=== PATIENT | female | born 1970 | race Caucasian/White ===

== ENCOUNTER 2017-02-20 17:43 | Emergency (ER) | payer OTHER ==
[2017-02-20 18:15] VITALS: BP 178/105; TEMP 98.7; O2SAT 98
--- NOTE | 2017-02-20 18:56 | ED.PDOC ---
History of Present Illness - General Chief Complaint: ENT Problem Stated Complaint: worm in ear Time Seen by Provider: 02/20/17 18:56 Source: patient - History of Present Illness Initial Comments: Arlen Mock 46 y/o female brought by to ER after patient claimed had worms in her right ear;she was already seen by her Md in [place] and was given prescription for worm medication but unable to pick it up at the pharmacy and came here if we could give medication for her symptoms tonight. She also claimed that parasite coming out of her skin and mouth as was claimed by Timing/Duration: last week Severity: moderate EENT Location: ear (R) Prearrival Treatment: no prearrival treatment Presenting Symptoms: worm in ears Improving Factors: nothing Worsening Factors: cold therapy Associated Symptoms: denies symptoms Allergies/Adverse Reactions: Allergies NO KNOWN ALLERGY Allergy (Verified 02/20/17 18:15) Home Medications: Ambulatory Orders NK [NK] 02/20/17 Review of Systems - Review of Systems Constitutional: States: no symptoms reported EENTM: States: no symptoms reported Respiratory: States: no symptoms reported Cardiology: States: no symptoms reported Gastrointestinal/Abdominal: States: no symptoms reported Genitourinary: States: no symptoms reported Musculoskeletal: States: no symptoms reported Skin: States: see HPI Past Medical History (General) - Patient Medical History Hx Seizures: No Hx Stroke: No Hx Dementia: No Hx Asthma: No Hx of COPD: No Hx Cardiac Disorders: No Hx Congestive Heart Failure: No Hx Pacemaker: No Hx Hypertension: No Hx Thyroid Disease: No Hx Diabetes: No Hx Gastroesophageal Reflux: No Hx Renal Disease: No Hx Cancer: No Hx of HIV: No Hx Hepatitis C: No Hx MRSA: No Surgical History: no surgical history - Vaccination History Hx Tetanus, Diphtheria Vaccination: No - not since high school Hx Influenza Vaccination: Yes Hx Pneumococcal Vaccination: No - Social History Hx Tobacco Use: Yes Hx Chewing Tobacco Use: No Hx Alcohol Use: No Hx Physical Abuse: No Hx Emotional Abuse: No Hx Suspected Abuse: No - Activities of Daily Living Grooming Ability: Independent Eating (Feeding) Ability: Independent Toileting Ability: Independent - Female History Patient is a Female of Child Bearing Age (10 -59 yrs old): Yes Patient : No Family Medical History - Family History Mother Family History: Unknown Physical Exam - Physical Exam General Appearance: Agitated, No apparent distress Eye Exam: bilateral normal Ear Exam: bilateral ear: auricle normal, canal normal, TM normal Nasal Exam: normal inspection Throat Exam: normal mouth inspection, pharynx normal Neck: non-tender, full range of motion, supple, normal inspection, trachea midline Cardiovascular/Respiratory: regular rate, rhythm, no M/R/G, no respiratory distress Abdominal Exam: non-tender, no organomegaly Skin Exam: normal color, warm/dry Progress - Progress Progress: 02/20/17 20:07 Last Vital Signs Temp 98.7 F 02/20/17 18:03 Pulse 117 H 02/20/17 18:03 Resp 20 02/20/17 18:03 BP 178/105 02/20/17 18:03 Pulse Ox 98 02/20/17 18:03 - Results/Orders Results/Orders: Explained to her that I was not able to find any parasites in her both ears- eardum was intact and also on her saliva nothing was seen as well as her skin.This was explained to the patient and was cussing nurses also check her ears and was told no gross evidence of parasites all over but kept crying / screaming and walked out of the room. Departure - Departure Clinical Impression: Ekbom's delusional parasitosis Time of Disposition: 19:20 Disposition: Left Against Medical Advice Departure Forms: Patient Portal Self Enrollment Referrals: Ivan Del Rio MD [Primary Care Provider] - 1-2 Weeks Home Medications: Ambulatory Orders NK [NK] 02/20/17
== END 2017-02-20 19:20 | disposition left against medical advice (07) ==
LOC: ER 17:43
DX: F22 Delusional disorders (principal)